=== PATIENT | female | born 1990 | race Caucasian/White ===

== ENCOUNTER 2016-09-28 02:35 | Inpatient (IN) | payer BC, OTHER ==
[2016-09-28] MEDS ORDERED: Dibucaine 1% 28.35 GM TUBE ONE (04:05)
[2016-09-28] MEDS ORDERED: Ibuprofen TAB* 600 MG ONE (04:05)
[2016-09-28] MEDS ORDERED: Witch Hazel PAD* JAR ONE (04:05)
[2016-09-28] MEDS ORDERED: Acetaminophen TAB* 325 MG PO PRN (04:38)
[2016-09-28] MEDS ORDERED: Dibucaine 1% 28.35 GM TUBE PR PRN (04:38)
[2016-09-28] MEDS ORDERED: Witch Hazel PAD* JAR TOPICAL PRN (04:38)
[2016-09-28] MEDS ORDERED: Glycerin ADULT SUPP PR PRN (04:38)
[2016-09-28] MEDS ORDERED: Simethicone TAB* 80 MG TAB.CHEW PO SCH (08:30)
[2016-09-28] MEDS: Docusate CAP* 100 MG PO SCH ×3 (09:07→21:36)
[2016-09-28] MEDS: Ibuprofen TAB* 600 MG PO PRN ×2 (09:58→17:28)
[2016-09-29] MEDS: Ibuprofen TAB* 600 MG PO PRN ×4 (00:38→21:13)
[2016-09-29 08:44] LABS: Hematocrit 39 % (35-47); Hemoglobin 13.7 g/dl (12.0-16.0); Mean Corpuscular HGB Conc 36 g/dl (31-36); Mean Corpuscular Hemoglobin 33 pg (27-31); Mean Corpuscular Volume 94 fL (80-97); Mean Platelet Volume 8 um3 (7.4-10.4); Red Cell Distribution Width 13 % (10.5-15); White Blood Count 12.7 10^3/ul (3.5-10.8)
[2016-09-29] MEDS: Docusate CAP* 100 MG PO SCH ×3 (08:59→21:13)
[2016-09-29] MEDS ORDERED: Ferrous Gluconate TAB* 324 MG TAB PO SCH (09:00)
[2016-09-29] MEDS: RHO D Immune Globulin (HUMAN)* 300 MCG = 1,500 I.U. INJ IM ONE ×2 (10:36→19:05)
[2016-09-30 08:06] VITALS: BP 115/67
[2016-09-30] MEDS: Ibuprofen TAB* 600 MG PO PRN (08:33)
== END 2016-09-30 12:10 | disposition home or self-care (01) | DRG 560 ==
LOC: MCHOBOUT 02:35 → MCHOB 02:59
PROVIDERS: ADMIT Midwife; ATTEND Midwife
PROC: 10E0XZZ Delivery of Products of Conception, External Approach (ICD-10-PCS; principal; 2016-09-28)
PROC: 0HQ9XZZ Repair Perineum Skin, External Approach (ICD-10-PCS; 2016-09-28)
DX: O48.0 Post-term pregnancy (principal); O70.0 First degree perineal laceration during delivery; Z37.0 Single live birth; Z3A.41 41 weeks gestation of pregnancy
CPT/HCPCS: 36415; 85025; 85461; 86900; 86901; A9270-GY; J2790

== ENCOUNTER 2019-04-22 15:15 | Inpatient (IN) | payer BC ==
[2019-04-22] MEDS ORDERED: Buffered Lidocaine 1% SYRIN* 1 ML/SYRINGE INTRADERM ONE (16:02)
[2019-04-22] MEDS ORDERED: Glycerin ADULT SUPP PR PRN (16:02)
[2019-04-22] MEDS ORDERED: Lactated Ringers 1000 ML Bag* 1,000 ML IV ONE (16:02)
[2019-04-22] MEDS ORDERED: RHO D Immune Globulin (HUMAN)* 300 MCG = 1,500 I.U. INJ IM ONE (16:02)
[2019-04-22] MEDS ORDERED: Witch Hazel PAD* JAR TOPICAL PRN (16:02)
[2019-04-22] MEDS ORDERED: Dibucaine 1% 28.35 GM TUBE PR PRN (16:02)
[2019-04-22] MEDS: Ibuprofen TAB* 600 MG PO PRN ×2 (16:11→22:21)
--- NOTE | 2019-04-22 16:18 | HP ---
General Information - Reason for Visit Pt reports mild ctx starting this morning, getting stronger around 1400 - General Information Maternal Age: 26 Grav: 1 Para: 0 SAB: 0 IEA: 0 Estimated Due Date: 04/18/19 Determined By: Early Ultrasound Gestational Age in Weeks/Days: 40 4/7 Maternal Blood Type and Rh: A Negative - Results this Serology/RPR Result: Non-Reactive Rubella Result: Immune HBsAg Result: Negative HIV Result: Negative GBS Culture Result: Positive Past Medical History Delivery History: Hx Uncomplicated Vaginal Delivery Pertinent Past Medical History: Non-Contributory Pertinent Past Surgical History: None Pertinent Family History: Non-Contributory - Antepartal Records Antepartal Records: Reviewed, Uncomplicated Review of Systems Constitutional: Uncomfortable CV Complaint: No Respiratory: Shortness of Breath: No Gastrointestinal: No Nausea/Vomiting, Normal Bowel Movement Genitourinary: No Dysuria, No Bleeding, No Leaking Fluid Musculoskeletal: No Epigastric Pain, Contractions Neurological: No Headache, No Visual Changes Movement: Normal Exam Allergies/Adverse Reactions: Allergies No Known Allergies Allergy (Verified 05/27/15 17:16) BP- 121/62, T- 97.5, P-69, R-20 - Measurements Height: 5 ft 7 in Weight: 84.822 kg Body Mass Index (BMI): 29.2 Pre- Weight: 73.936 kg - Exam Breast: Breast Exam Deferred CVA: No CVA Tenderness Extremities: No Edema Heart: Normal Rhythm/Heart Sounds HEENT: No Significant Findings Lungs: Clear Bilaterally Rectal: Rectal Exam Deferred Reflexes: DTR 2+ Thyroid: No Thyromegaly - Abdominal Exam Abdomen Exam: Non-Tender, Fundal Height Consistent with Dates - Ultrasound/Biophysical Profile Ultrasound Status: Not Done Targeted Exam Findings See L&D Outpatient Visit Provider Note for Findings: N/A Estimated Weight: 7# Cervical Exam: Complete Effacement: Complete Station: +2 Presenting Part: Vertex Membrane Status: SROM Amniotic Fluid Evaluation: Gross Rupture, Meconium Bleeding/Discharge: Bloody Show EFM Findings - External Monitor Findings Baseline Heart Rate: 120 External Monitor Findings: Variability Moderate External Monitor Findings Comment: Pt with deep variable decel soon after placed on monitor Contractions: Regular, Strong, 45-90 Seconds Assessment/Plan - Assessment Pt presented in active labor, experienced SROM shortly after entering room followed by strong urge to push. FHR exhibited deep variable deceleration shortly after placed on monitor, but recovered well with O2 and position change and was soon delivered by pt's strong pushing efforts. - Obstetrical Risk Factors Obstetrical Risk Factors: GBS Positive - Plan Plan: Admit - Anticipate Vaginal Delivery - Date/Time of Admission Date of Admission: 04/22/19 Time of Admission: 15:15
--- NOTE | 2019-04-22 16:45 | PROCNOTE ---
[facility] OB: Delivery Note - Delivery A Date of : 04/22/19 Time of : 15:29 [place] Sex: Male Weight at : 3.075 kg Score 1 Minute: 9 Score 5 Minutes: 9 Gestational Age in Weeks and Days at Delivery: 40 Weeks and 4 Days Delivery Method: Spontaneous Vaginal Labor: Spontaneous Did Patient attempt ?: N/A, No Previous Amniotic Fluid: Meconium Estimated Blood Loss: 100 Anesthesia/Analgesia: None - Nursery Level of Nursery: Regular/Bedside - Perineum Perineal Injury: None/Intact Perineal Repair: None - Events Delivery Events of Note: Precipitous Delivery, Supplemental O2 to Mother, Antibiotics Indicated - Not Given - Additional Delivery Notes Additional Delivery Notes: Pt arrived to [facility] in active labor. Shortly after entering the room pt experienced SROM followed by pressure and urge to push. Pt examined and found to be complete. FHR exhibited deep variable deceleration at this time, resolved with position change and O2 to mother. Pt initiated spontaneous pushing efforts with good descent. Infant soon brought to [facility]. Pt coached through slow, controlled delivery of the head. Tight nuchal cord noted x1, delivered via somersault maneuver and cord reduced. to maternal abdomen with vigorous spontaneous cry, dried and stimulated. After cord pulsation ceased cord clamped x2 and cut by infant's father. When delivery of placenta attempted, tearing sensation noted with gentle cord traction, so encouraged maternal pushing efforts. She was able to bring placenta to introitus and then placenta able to be grasped and delivered, chiki side. Velamentous insertion of cord noted. Perineum examined and found to be intact. Minimal bleeding, fundus firm. Infant shortly after delivery. Pt and stable at this time, anticipate normal course.
[2019-04-22] MEDS ORDERED: Lactated Ringers 1000 ML Bag* 1,000 ML IV SCH ×2 (17:00)
[2019-04-22] MEDS: Docusate CAP* 100 MG PO SCH (20:07)
[2019-04-22] MEDS: Acetaminophen TAB* 325 MG PO PRN (20:07)
[2019-04-23] MEDS: Acetaminophen TAB* 325 MG PO PRN ×4 (00:21→14:08)
[2019-04-23] MEDS: Ibuprofen TAB* 600 MG PO PRN ×3 (04:24→18:24)
[2019-04-23 06:14] LABS: ABS Eosinophils 0.2 10^3/ul (0-0.6); ABS Lymphocytes 2.2 10^3/ul (1.0-4.8); ABS Monocytes 0.8 10^3/ul (0-0.8); Eosinophil % 2.1 %; Hematocrit 35 % (35-47); Hemoglobin 12.7 g/dL (12.0-16.0); Lymphocyte % 21.6 %; Mean Corpuscular HGB Conc 36 g/dL (31-36); Mean Corpuscular Hemoglobin 31 pg (27-31); Mean Corpuscular Volume 87 fL (80-97); Platelet Count 179 10^3/uL (150-450); Red Blood Count 4.03 10^6 /uL (3.70-4.87); Red Cell Distribution Width 13 % (10-15); White Blood Count 10.2 10^3/uL (3.5-10.8)
[2019-04-23] MEDS: Docusate CAP* 100 MG PO SCH ×3 (08:49→21:22)
[2019-04-23] MEDS ORDERED: Ferrous Gluconate TAB* 324 MG TAB PO SCH (09:00)
[2019-04-24] MEDS: Ibuprofen TAB* 600 MG PO PRN ×2 (00:30→07:11)
[2019-04-24 07:58] VITALS: BP 118/76
[2019-04-24] MEDS: Docusate CAP* 100 MG PO SCH (10:08)
== END 2019-04-24 14:00 | disposition home or self-care (01) | DRG 560 ==
LOC: MCHOBOUT 15:15 → MCHOB 15:32
PROVIDERS: ADMIT Midwife; ATTEND Midwife
PROC: 10E0XZZ Delivery of Products of Conception, External Approach (ICD-10-PCS; principal; 2019-04-22)
PROC: 4A1HXCZ Monitoring of Products of Conception, Cardiac Rate, External Approach (ICD-10-PCS; 2019-04-22)
DX: O99.824 Streptococcus B carrier state complicating childbirth (principal); Z37.0 Single live birth; O48.0 Post-term pregnancy; O77.0 Labor and delivery complicated by meconium in amniotic fluid; O76 Abnormality in fetal heart rate and rhythm complicating labor and delivery; O62.3 Precipitate labor; O43.123 Velamentous insertion of umbilical cord, third trimester; O69.1XX0 Labor and delivery complicated by cord around neck, with compression, not applicable or unspecified; Z3A.40 40 weeks gestation of pregnancy
CPT/HCPCS: 36415; 85025; 85461; 86900; 86901; A9270-GY; J2790